=== PATIENT | female | born 1960 ===

== ENCOUNTER 2023-07-03 15:40 | Outpatient (CLI) | payer OTHER, SELFPAY ==
--- NOTE | ~2023-07-03 | MR_ITS ---
EXAMINATION: MR pelvis wo/w con DATE: 07/03/2023 16:52 INDICATION: Mass in right ovary. Right lower quadrant abdominal pain. TECHNIQUE: Magnetic resonance imaging (MRI) of the pelvis was performed without and with 19 mL MultiH ance intravenous contrast. COMPARISON: None. FINDINGS: There are no dilated loops of bowel. The uterus is normal. The endometrial complex measures 4 mm in t hickness. There is a 1.8 cm cyst in right ovary. Left ovary is normal. There is diverticulosis of the colon without evidence of diverticulitis. There are no pathologically enlarged lymph nodes. There is no free intraperitoneal fluid. IMPRESSION: 1. 1.8 cm cyst in right ovary, likely benign. Reviewed, dictated and finalized at location A.
== END 2023-07-03 15:41 ==
LOC: MICIMG 15:42
DX: N83.8 Other noninflammatory disorders of ovary, fallopian tube and broad ligament (principal)
CPT/HCPCS: 72197; A9577